=== PATIENT | female | born 2000 | race Hispanic/Latino ===

== ENCOUNTER 2022-08-30 23:02 | Emergency (ER) | payer OTHER ==
[~2022-08-30] VITALS: Ht 162.6 cm; Wt 86.2 kg
[2022-08-30 23:04] VITALS: BP 142/85
== END 2022-08-30 23:36 | disposition home or self-care (01) ==
LOC: EDH 23:02
DX: B08.4 Enteroviral vesicular stomatitis with exanthem (principal)